=== PATIENT | male | born 1975 | race Caucasian/White ===

== ENCOUNTER 2022-07-25 09:47 | Outpatient (CLI) | payer BC, SELFPAY ==
--- NOTE | ~2022-07-25 | XR_ITS ---
Supine and upright views of the abdomen Clinical history: Abdominal pain Findings: Bowel gas pattern is nonspecific. No evidence for obstruction or free air. No abnormal mass lesion or calcification is seen. 17 degree dextroscoliosis of the lumbar spine noted. Impression: No acute abnormality. 17 degree dextroscoliosis of the lumbar spine. Reviewed, dictated and finalized at [facility]. Impression: No acute abnormality. 17 degree dextroscoliosis of the lumbar spine.
--- NOTE | ~2022-07-25 | XR_ITS ---
XR chest 2V 07/25/2022 10:08 Indication: Recent upper respiratory infection Procedure: 2 view chest Comparison: No prior studies for comparison. Findings: There is a healed right sixth, eighth and ninth rib fractures with callus formation. Heart size normal. No focal air space disease, pulmonary edema, pleural effusion or suspected pneumothorax. Impression: 1: No acute cardiopulmonary disease. Reviewed, dictated and finalized at location [facility]. Impression: 1: No acute cardiopulmonary disease.
== END 2022-07-25 09:48 | disposition home or self-care (01) ==
LOC: ANHIMG 09:52
PROVIDERS: PCP Family Medicine; Visit Provider Family Medicine
DX: R07.9 Chest pain, unspecified (principal); R10.9 Unspecified abdominal pain; M41.86 Other forms of scoliosis, lumbar region
CPT/HCPCS: 71046; 74018

== ENCOUNTER 2022-10-27 09:00 | Outpatient (CLI) | payer BC, SELFPAY ==
--- NOTE | ~2022-10-27 | XR_ITS ---
EXAMINATION: XR foot LT min 3V DATE: 10/27/2022 09:25 INDICATION: Left foot pain and swelling. TECHNIQUE: 4 views of left foot were obtained. COMPARISON: None. FINDINGS: There is moderate hallux valgus. There is a transverse fracture of neck of second metatarsa l with impaction. There is mild osteoarthritis of first metatarsophalangeal joint. IMPRESSION: 1. Transverse fracture of neck of second metatarsal. 2. Moderate hallux valgus. 3. Mild osteoarthritis of first metatarsophalangeal joint. Reviewed, dictated and finalized at location A.
== END 2022-10-27 09:01 | disposition home or self-care (01) ==
PROVIDERS: PCP Family Medicine; Visit Provider Family Medicine
DX: M79.672 Pain in left foot (principal); S92.322A Displaced fracture of second metatarsal bone, left foot, initial encounter for closed fracture; M20.12 Hallux valgus (acquired), left foot; M19.072 Primary osteoarthritis, left ankle and foot; R60.9 Edema, unspecified
CPT/HCPCS: 73630